=== PATIENT | female | born 1935 | race Caucasian/White ===

== ENCOUNTER 2018-02-11 06:53 | Inpatient (IN) | payer MEDICARE ==
[2018-02-04 14:23] LABS: BASOPHILS % (AUTO) 0.4 % (0-1); EOSINOPHILS # (AUTO) 0.2 X10'3 (0-0.9); EOSINOPHILS % (AUTO) 2.8 % (0-6); LYMPHOCYTES # (AUTO) 1.9 X10'3 (1.1-4.8); LYMPHOCYTES % (AUTO) 25.4 % (21-51); MEAN CORPUSCULAR HEMOGLOBIN 31.4 PG (27.0-31.0); MEAN CORPUSCULAR HGB CONC 33.8 % (33.0-36.5); MEAN CORPUSCULAR VOLUME 92.8 FL (78-98); MEAN PLATELET VOLUME 9.8 FL (7.4-10.4); MONOCYTES # (AUTO) 0.5 X10'3 (0-0.9); MONOCYTES % (AUTO) 6.9 % (2-12); NEUTROPHILS % (AUTO) 64.5 % (42-75); PRE OP HEMATOCRIT 40.3 % (35.0-45.0); PRE OP HEMOGLOBIN 13.6 g/dL (12.0-16.0); PRE OP PLATELET COUNT 131 X10'3 (140-440); RED BLOOD COUNT 4.34 X10'6 (4.20-5.60); RED CELL DISTRIBUTION WIDTH 12.3 % (11.5-14.5)
[2018-02-04 14:33] LABS: ALBUMIN 3.9 G/DL (3.4-5.0); ALBUMIN/GLOBULIN RATIO 1.1 (1.1-1.5); ALKALINE PHOSPHATASE 77 IU/L (46-116); BLOOD UREA NITROGEN 10 MG/DL (7-18); BUN/CREATININE RATIO 11.6 (6.6-38.0); CALCIUM 10.5 MG/DL (8.5-10.1); CHLORIDE 104 MMOL/L (99-107); CREATININE 0.86 MG/DL (0.40-0.90); PRE OP ALT 20 U/L (30-65); PRE OP ANION GAP 10 (8-16); PRE OP AST 15 U/L (10-37); PRE OP BILIRUB, TOTAL 0.6 MG/DL (0.0-1.0); PRE OP GLUCOSE 109 MG/DL (70-104); PRE OP POTASSIUM 4.1 MMOL/L (3.4-5.1); PRE OP SODIUM 140 MMOL/L (135-145); TOTAL CARBON DIOXIDE 25.8 MMOL/L (24-32); TOTAL PROTEIN 7.5 G/DL (6.4-8.2); eGFR 63 ML/MIN
[~2018-02-11] VITALS: Ht 162.6 cm; Wt 90.5 kg
[2018-02-11] VITALS (23 sets, daily range): BP systolic 120–154; BP diastolic 45–89
[~2018-02-11 06:53] MED LIST: ACET-2971 PO; ASPI-611 PO; ATEN50TA PO; B COMPLEX; CALC-1051 PO; CETI10CA PO; CHOL10002 PO; FISH12002 PO; GLUC100017; LEVO50TA8 PO; LISI40TA4 PO; LOVA20TA2 PO; MAGN400C PO; PSYL0.5215; UBID100C45 PO; VANCOMYCIN INJ 1000 MG in NORMAL SALINE 250ml IV.SOLN IV ONE; cefazolin/dext.iso 2gm/50ml 50 ML IV ONE; famotidine 20mg tablet PO ONE; ringers solution, lacted 1,000 ML IV SCH; tranexamic acid inj. 900 MG in normal saline 100ml IV soln 91 ML IV ONE
[2018-02-11] MEDS ORDERED: LIDOcaine 1% (10mg/ml) 2ml vial ONE (07:29)
[2018-02-11] MEDS: morphine 4 MG/ML inj SYRINge IV PRN ×2 (08:30→08:56)
[2018-02-11] MEDS ORDERED: tetracaine 1% (10mg/ml) pres. free inj. ONE (08:41)
[2018-02-11] MEDS ORDERED: ROPIVAcaine 0.5% (5mg/ml) 30ml vial ONE ×2 (08:41→08:51)
[2018-02-11] MEDS ORDERED: MIDAZolam 1mg/ml 10ml vial ONE (08:45)
[2018-02-11] MEDS ORDERED: morphine /PF 1mg/ml 10ml inj. ONE (08:45)
[2018-02-11] MEDS ORDERED: cloNIDine hcl/PF 100mcg/ml inj ONE (08:46)
[2018-02-11] MEDS ORDERED: ketorolac trometh. 30mg/ml inj. ONE ×2 (08:50→10:50)
[2018-02-11] MEDS ORDERED: ondansetron/PF 4mg/2ml inj ONE (10:00)
[2018-02-11] MEDS ORDERED: ePHEDrine 50MG/ML INJ. ONE (10:50)
[2018-02-11] MEDS ORDERED: dexamethasone sod phosphate 4mg/ml inj. ONE (10:53)
[2018-02-11] MEDS ORDERED: ROPIVACAINE HCL/PF PAIN PUMP 400 ML IJ SCH (11:00)
[2018-02-11] MEDS ORDERED: propofol inj 20 ML IV ONE (11:05)
[2018-02-11] MEDS ORDERED: ringers solution, lacted 1,000 ML IV SCH (11:31)
[2018-02-11] MEDS ORDERED: fentaNYL/PF 50MCG/1 ML 2ML syringe IV PRN ×2 (11:35)
[2018-02-11] MEDS ORDERED: hydrALAZINE 20mg/ml inj. IV PRN (11:35)
[2018-02-11] MEDS ORDERED: meperidine/PF 25mg/ml syringe IV PRN ×2 (11:35)
[2018-02-11] MEDS ORDERED: ondansetron/PF 4mg/2ml inj IV PRN ×3 (11:35→13:00)
[2018-02-11] MEDS ORDERED: enalaprilat dihydrate 2.5mg/2ml vial IV PRN (11:35)
[2018-02-11] MEDS ORDERED: diphenhydrAMINE 50 mg/ml inj IV PRN (12:15)
[2018-02-11] MEDS: potassium cl 20mEq in 1/2 NS 1,000 ML IV SCH ×2 (12:56→17:25)
[2018-02-11] MEDS ORDERED: diphenhydrAMINE 25mg capsule PO PRN ×2 (13:00)
[2018-02-11] MEDS ORDERED: acetaminophen 325mg tablet PO PRN ×2 (13:00→16:09)
[2018-02-11] MEDS: gabapentin 300mg capsule PO SCH ×2 (13:00→20:25)
[2018-02-11] MEDS ORDERED: HYDROmorphone 1 mg/ml syringe IV PRN ×2 (13:00)
[2018-02-11] MEDS ORDERED: bisacodyl 10mg suppository rectal RC PRN (13:00)
[2018-02-11] MEDS ORDERED: magnesium hydroxide 30ml (MOM) UD suspension PO PRN (13:00)
[2018-02-11] MEDS ORDERED: oxyCODONE IR 5mg (immed. release) tablet PO PRN (13:00)
[2018-02-11] MEDS ORDERED: scopolamine 1.5mg patch.TD72 TD ONE ×2 (13:25→13:45)
[2018-02-11] MEDS ORDERED: CALC-159 PO (13:52)
[2018-02-11] MEDS: acetaminophen 325mg tablet PO SCH ×2 (14:00→20:00)
[2018-02-11] MEDS: ketorolac tromethamine 15mg/ml inj. IV SCH ×2 (14:41→20:11)
[2018-02-11] MEDS ORDERED: tranexamic acid inj. 900 MG in normal saline 100ml IV soln 100 ML IV ONE (16:00)
[2018-02-11] MEDS: ceFAZolin 1GM/D5W- ADD-VANTAGE 50 ML IV SCH ×2 (17:35→23:55)
[2018-02-11] MEDS ORDERED: vancomycin/NS 1 GM ADD-VANTAGE 250 ML IV SCH (20:00)
[2018-02-11] MEDS: psyllium seed 3.4 gm packet PO SCH (20:00)
[2018-02-11] MEDS ORDERED: ACETAMINOPHEN 650 MG PO SCH (20:00)
[2018-02-11] MEDS: atorvastatin 10mg tablet PO SCH (20:24)
[2018-02-11] MEDS: sennosides 8.6mg tablet PO SCH (20:25)
[2018-02-11] MEDS: atenolol 50mg tablet PO SCH (20:25)
[2018-02-12] VITALS (7 sets, daily range): BP systolic 98–130; BP diastolic 35–58
[2018-02-12] MEDS ORDERED: proCHLORperazine 10 MG/2 ml inj IV PRN (00:25)
[2018-02-12] MEDS: acetaminophen 325mg tablet PO SCH ×4 (02:00→20:40)
[2018-02-12] MEDS: ketorolac tromethamine 15mg/ml inj. IV SCH ×2 (02:19→08:27)
[2018-02-12] MEDS: potassium cl 20mEq in 1/2 NS 1,000 ML IV SCH ×3 (05:26→20:56)
[2018-02-12 06:11] LABS: BASOPHILS % (AUTO) 0.1 % (0-1); EOSINOPHILS # (AUTO) 0.1 X10'3 (0-0.9); EOSINOPHILS % (AUTO) 1.4 % (0-6); HEMATOCRIT 33.1 % (35.0-45.0); HEMOGLOBIN 10.9 g/dl (12.0-16.0); LYMPHOCYTES # (AUTO) 0.7 X10'3 (1.1-4.8); LYMPHOCYTES % (AUTO) 8.8 % (21-51); MEAN CORPUSCULAR HEMOGLOBIN 30.7 PG (27.0-31.0); MEAN CORPUSCULAR HGB CONC 32.9 % (33.0-36.5); MEAN CORPUSCULAR VOLUME 93.3 FL (78-98); MEAN PLATELET VOLUME 10.1 FL (7.4-10.4); MONOCYTES # (AUTO) 0.2 X10'3 (0-0.9); MONOCYTES % (AUTO) 3.2 % (2-12); NEUTROPHILS # (AUTO) 6.5 X10'3 (1.8-7.7); NEUTROPHILS % (AUTO) 86.5 % (42-75); PLATELET COUNT 111 X10'3 (140-440); RED BLOOD COUNT 3.55 X10'6 (4.20-5.60); RED CELL DISTRIBUTION WIDTH 13.4 % (11.5-14.5); WHITE BLOOD COUNT 7.5 X10'3 (4.5-11.0)
[2018-02-12 06:17] LABS: ANION GAP 11 (8-16); CHLORIDE 105 MMOL/L (99-107); POTASSIUM 4.9 MMOL/L (3.5-5.1); SODIUM 139 MMOL/L (135-145); TOTAL CARBON DIOXIDE 23.2 MMOL/L (24-32)
[2018-02-12] MEDS: levoTHYROXINE 25mcg tablet PO SCH (07:33)
[2018-02-12] MEDS: lisinopril 10 MG tablet PO SCH (08:00)
[2018-02-12] MEDS ORDERED: non-formulary drug (Fish Oil/Borage/Flax/Om3,6,9#1 (Omega 3-6-9 1,200 mg Softgel) 1 CAP) PO SCH (08:00)
[2018-02-12] MEDS ORDERED: GLUCOSAMINE SULFATE 1500 MG SCH (08:00)
[2018-02-12] MEDS ORDERED: UBIDECARENONE 120 MG PO SCH (08:00)
[2018-02-12] MEDS ORDERED: calcium carbonate/vitamin D3 tablet PO SCH (08:30)
[2018-02-12] MEDS: magnesium oxide 400mg tablet PO SCH (08:32)
[2018-02-12] MEDS: psyllium seed 3.4 gm packet PO SCH ×2 (08:32→20:38)
[2018-02-12] MEDS: vitamin B comp w/Vit. C tab 1 TAB TABLET PO SCH (08:32)
[2018-02-12] MEDS: vitamin D (cholecalciferol) 1,000 unit tablet PO SCH (08:34)
[2018-02-12] MEDS: calcium carbonate 500mg tablet PO SCH (08:35)
[2018-02-12] MEDS: aspirin 325mg tablet PO SCH (08:35)
[2018-02-12] MEDS: cetirizine 10mg tablet PO SCH (08:35)
[2018-02-12] MEDS ORDERED: ROPIVACAINE HCL/PF PAIN PUMP 400 ML IJ SCH (20:16)
[2018-02-12] MEDS: atorvastatin 10mg tablet PO SCH (20:40)
[2018-02-12] MEDS: atenolol 50mg tablet PO SCH (20:40)
[2018-02-12] MEDS: celeCOXIB 100mg capsule PO SCH (20:40)
[2018-02-12] MEDS: sennosides 8.6mg tablet PO SCH (20:46)
[2018-02-13] MEDS: acetaminophen 325mg tablet PO SCH ×2 (02:00→07:30)
[2018-02-13] MEDS: potassium cl 20mEq in 1/2 NS 1,000 ML IV SCH (04:56)
[2018-02-13] MEDS: oxyCODONE IR 5mg (immed. release) tablet PO PRN ×2 (05:38→07:29)
[2018-02-13] MEDS ORDERED: ASPI-1 PO (06:57)
[2018-02-13 07:15] LABS: BASOPHILS % (AUTO) 0.2 % (0-1); EOSINOPHILS # (AUTO) 0.1 X10'3 (0-0.9); EOSINOPHILS % (AUTO) 1.9 % (0-6); HEMATOCRIT 31.8 % (35.0-45.0); HEMOGLOBIN 10.5 g/dl (12.0-16.0); LYMPHOCYTES # (AUTO) 1.7 X10'3 (1.1-4.8); LYMPHOCYTES % (AUTO) 22.1 % (21-51); MEAN CORPUSCULAR HEMOGLOBIN 30.4 PG (27.0-31.0); MEAN CORPUSCULAR HGB CONC 32.9 % (33.0-36.5); MEAN CORPUSCULAR VOLUME 92.4 FL (78-98); MONOCYTES # (AUTO) 0.5 X10'3 (0-0.9); MONOCYTES % (AUTO) 6.8 % (2-12); NEUTROPHILS # (AUTO) 5.2 X10'3 (1.8-7.7); PLATELET COUNT 104 X10'3 (140-440); RED BLOOD COUNT 3.44 X10'6 (4.20-5.60); RED CELL DISTRIBUTION WIDTH 12.7 % (11.5-14.5); WHITE BLOOD COUNT 7.6 X10'3 (4.5-11.0)
[2018-02-13] MEDS: vitamin D (cholecalciferol) 1,000 unit tablet PO SCH (07:29)
[2018-02-13] MEDS: celeCOXIB 100mg capsule PO SCH (07:29)
[2018-02-13] MEDS: magnesium oxide 400mg tablet PO SCH (07:30)
[2018-02-13] MEDS: calcium carbonate 500mg tablet PO SCH (07:30)
[2018-02-13] MEDS: cetirizine 10mg tablet PO SCH (07:30)
[2018-02-13] MEDS: vitamin B comp w/Vit. C tab 1 TAB TABLET PO SCH (07:30)
[2018-02-13] MEDS: aspirin 325mg tablet PO SCH (07:30)
[2018-02-13] MEDS: levoTHYROXINE 25mcg tablet PO SCH (07:30)
[2018-02-13] MEDS: psyllium seed 3.4 gm packet PO SCH (08:00)
[2018-02-13] MEDS ORDERED: acetaminophen 325mg tablet PO PRN (13:00)
== END 2018-02-13 11:00 | disposition home health service (06) | DRG 470 ==
LOC: PAS IN 06:53 → EDSTATUS 12:30 → ORTHO 4S 15:00
PROVIDERS: ADMIT Orthopaedic Surgery; ATTEND Orthopaedic Surgery
PROC: 3E0T3BZ Introduction of Anesthetic Agent into Peripheral Nerves and Plexi, Percutaneous Approach (ICD-10-PCS; 2018-02-11)
PROC: 8E0Y0CZ Robotic Assisted Procedure of Lower Extremity, Open Approach (ICD-10-PCS; 2018-02-11)
PROC: 0SRC0LZ Replacement of Right Knee Joint with Medial Unicondylar Synthetic Substitute, Open Approach (ICD-10-PCS; principal; 2018-02-11 09:54)
DX: M17.11 Unilateral primary osteoarthritis, right knee (principal); D62 Acute posthemorrhagic anemia; E03.9 Hypothyroidism, unspecified; I25.10 Atherosclerotic heart disease of native coronary artery without angina pectoris; M25.561 Pain in right knee; E78.5 Hyperlipidemia, unspecified; I10 Essential (primary) hypertension; E66.9 Obesity, unspecified; Z68.34 Body mass index [BMI] 34.0-34.9, adult; Z72.89 Other problems related to lifestyle; Z79.899 Other long term (current) drug therapy; Z79.82 Long term (current) use of aspirin
CPT/HCPCS: 36415; 80051; 80053; 85025; 87070; 97110; 97116; 97161; 97530; A7000; C1713; C1758; C1776; G0378; J0690; J0735; J0780; J1100; J1885; J2250; J2270; J2274; J2405; J2704; J2795; J3370; J3490; J7030; J7120